=== PATIENT | female | born 1955 | race Caucasian/White ===

== ENCOUNTER 2022-07-27 08:53 | Day surgery (SDC) | payer MEDICARE, BC ==
[~2022-07-27] VITALS: Ht 165.1 cm; Wt 71.8 kg
[2022-07-27 09:11] VITALS: BP 143/79
[2022-07-27] MEDS ORDERED: OMEP20CA16 PO (09:21)
[2022-07-27] MEDS ORDERED: ADV50250 INH (09:21)
[2022-07-27] MEDS ORDERED: FERR-116 PO (09:21)
[2022-07-27] MEDS ORDERED: ATOR40TA72 PO (09:21)
[2022-07-27] MEDS ORDERED: TRAM50TA2 PO (09:21)
[2022-07-27] MEDS ORDERED: ESCI-8 PO (09:21)
[2022-07-27] MEDS ORDERED: METH-797 PO (09:21)
[2022-07-27] MEDS ORDERED: MAGN500C4 PO (09:21)
[2022-07-27] MEDS ORDERED: MELA10TA2 PO (09:21)
[2022-07-27] MEDS ORDERED: LISI10TA27 PO (09:21)
[2022-07-27] MEDS ORDERED: LEVO112T52 PO (09:21)
[2022-07-27] MEDS ORDERED: LIDOcaine 1% 30ml preserv. free vial ONE (09:33)
[2022-07-27 10:18] VITALS: BP 139/76
[2022-07-27 10:33] VITALS: BP 145/84
[2022-07-27 10:48] VITALS: BP 150/80
[2022-07-27 11:03] VITALS: BP 139/68
[2022-07-27 11:18] VITALS: BP 143/77
[2022-07-27 12:10] LABS: APPEARANCE,CSF CLEAR; CSF SUPERNATANT COLOR COLORLESS
[2022-07-27 12:11] LABS: CSF RBC 19 /CU MM (0); CSF VOLUME 14 ML; CSF WBC CT 0 /CU MM (0-5); TUBE# COUNTED 3
[2022-07-27 12:23] LABS: GLUCOSE,CSF 68 MG/DL (40-75); TOTAL PROTEIN,CSF 57 MG/DL (30-60)
[2022-07-28 13:28] LABS: IMMUNOGLOBULIN G, QN, SERUM 1010 mg/dL (586-1602)
[2022-07-30 16:21] LABS: CRYPTOCOCCUS ANTIGEN, CSF Negative (Negative); VDRL, CSF Non Reactive (Non Rea:<1:1)
[2022-07-31 09:41] LABS: IMMUNOGLOBULIN G, QN CSF 2.4 mg/dL (0.0-6.7)
[2022-08-02 17:30] LABS: LYME IGG P23 AB Absent (.); LYME IGG P28 AB Absent (.); LYME IGG P30 AB Absent (.); LYME IGG P41 AB Absent (.); LYME IGG P45 AB Absent (.); LYME IGG P58 AB Absent (.); LYME IGG P66 AB Absent (.); LYME IGG P93 AB Absent (.); LYME IGG WB INTERP Negative (.); LYME IGM P23 AB Absent (.); LYME IGM P39 AB Absent (.); LYME IGM P41 AB Absent (.); LYME IGM WB INTERP Negative (.)
== END 2022-07-27 11:47 | disposition home or self-care (01) ==
LOC: SSTAY O 08:53
PROVIDERS: ATTEND Psychiatry & Neurology Neurology
DX: H46.9 Unspecified optic neuritis (principal); I10 Essential (primary) hypertension; J44.9 Chronic obstructive pulmonary disease, unspecified; E78.5 Hyperlipidemia, unspecified; G43.909 Migraine, unspecified, not intractable, without status migrainosus; E03.9 Hypothyroidism, unspecified; K27.9 Peptic ulcer, site unspecified, unspecified as acute or chronic, without hemorrhage or perforation; F32.A Depression, unspecified; Z98.890 Other specified postprocedural states; Z79.899 Other long term (current) drug therapy
CPT/HCPCS: 36415; 62328; 82040; 82042; 82164; 82784; 82945; 83873; 83916; 84157; 86592; 86617; 87899; 89051; J3490; 77003; 88108; A4620